=== PATIENT | female | born 2000 | race Caucasian/White ===

== ENCOUNTER 2023-08-08 19:09 | Outpatient (REF) | payer BC, SELFPAY | END 2023-08-08 19:10 | disposition home or self-care (01) | LOC: LBN 19:09 | PROVIDERS: Visit Provider Physician Assistant | DX: J02.9 Acute pharyngitis, unspecified (principal) | CPT/HCPCS: 87070 ==

== ENCOUNTER 2023-10-16 03:09 | Outpatient (CLI) | payer BC, SELFPAY ==
[2023-10-16 08:11] LABS: Glucose 102 mg/dL (74-106)
[2023-10-16 08:26] LABS: Cholesterol 147 mg/dL (<200); HDL Cholesterol 61 mg/dL (40-60); TSH (W/Ref FT4) 1.66 uIU/mL (0.36-3.74)
[2023-10-16 08:29] LABS: Triglyceride <25 mg/dL (<150)
[2023-10-16 08:40] LABS: LDL CHOLESTEROL 81 mg/dL (<100)
== END 2023-10-16 03:10 | disposition home or self-care (01) ==
LOC: LBO 03:09
PROVIDERS: PCP Nurse Practitioner Family; Referring Provider Nurse Practitioner Family; Visit Provider Nurse Practitioner Family
DX: E66.3 Overweight (principal); Z83.49 Family history of other endocrine, nutritional and metabolic diseases; Z00.00 Encounter for general adult medical examination without abnormal findings
CPT/HCPCS: 36415; 80061; 82947; 83721; 84443

== ENCOUNTER 2023-12-11 10:36 | Outpatient (REF) | payer BC, SELFPAY ==
--- NOTE | 2023-12-11 10:30 | PAPFT_PTH ---
PATIENT: Marely Whitehead LOC: N U#:[id number] AGE/SX: 23/F ROOM: RE12/11/[address]: Farida Posey NP : 2000 BED: DIS: 12/11/2023 SPEC #: [id number] RECD: 12/11/23 13:08 STATUS: MAYELIN REXenia #: [id number] LEILA: 12/11/23 10:[address]: Farida Posey NP DEPT: [facility] RECD BY: Alejandra Aleman ENTERED: 12/11/23 13:08 SP TYPE: PAPFT OTHR DR: Pushpa Reynoso APRN Tissues: 1 - CX/ENDOCX FOR PAP SMEARS Procedures: PAP THIN PREP/[facility] Screening Comments: [id number]
== END 2023-12-11 10:37 | disposition home or self-care (01) ==
LOC: LBN 10:36
PROVIDERS: PCP Nurse Practitioner Family; Visit Provider Nurse Practitioner Women's Health
DX: Z12.4 Encounter for screening for malignant neoplasm of cervix (principal)
CPT/HCPCS: 88142

== ENCOUNTER 2025-03-11 03:19 | Outpatient (CLI) | payer BC, SELFPAY ==
[2025-03-11 09:33] LABS: TSH (W/Ref FT4) 1.64 uIU/mL (0.55-4.78)
== END 2025-03-11 03:20 | disposition home or self-care (01) ==
LOC: LBO 03:19
PROVIDERS: PCP Nurse Practitioner Family; Visit Provider Nurse Practitioner Family
DX: Z83.49 Family history of other endocrine, nutritional and metabolic diseases (principal); E66.3 Overweight
CPT/HCPCS: 36415; 84443